=== PATIENT | female | born 1990 | race Two or more races ===

== ENCOUNTER 2021-03-03 07:52 | Observation (INO) | payer SELFPAY ==
[~2021-03-03] VITALS: Ht 160 cm; Wt 79.4 kg
[2021-03-03 08:55] VITALS: BP 109/67
[2021-03-03] MEDS ORDERED: PNV1TABL89 PO (09:42)
== END 2021-03-03 09:35 | disposition home or self-care (01) ==
LOC: INTOOBSV 07:53 → 4S 07:53
PROVIDERS: ADMIT Obstetrics & Gynecology; ATTEND Obstetrics & Gynecology
DX: O62.9 Abnormality of forces of labor, unspecified (principal); O26.892 Other specified pregnancy related conditions, second trimester; R10.2 Pelvic and perineal pain; Z79.899 Other long term (current) drug therapy; Z3A.20 20 weeks gestation of pregnancy
CPT/HCPCS: 59025; 76805; 81003; 99219

== ENCOUNTER 2022-06-03 06:25 | Emergency (ER) | payer MEDICAID ==
[~2022-06-03] VITALS: Ht 160 cm; Wt 72.7 kg
[~2022-06-03 06:25] MED LIST: PNV1TABL89 PO
[2022-06-03] MEDS ORDERED: CEPHALEXIN MONOHYDRATE 500 MG CAPSULE PO ONE (08:30)
[2022-06-03] MEDS ORDERED: SULFAMETHOX/TRIMETH DS 800-160 MG/TABLET PO ONE (08:30)
[2022-06-03] MEDS ORDERED: DiphenhydrAMINE HCL 25 MG CAPSULE PO ONE (08:30)
[2022-06-03] MEDS ORDERED: CEPH-558 PO (08:30)
[2022-06-03] MEDS ORDERED: SULF-261 PO (08:31)
[2022-06-03 08:40] VITALS: BP 112/68
[2022-06-04] MEDS ORDERED: IBUP-1554 PO (05:16)
[2022-06-04] MEDS ORDERED: HYDR-4723 PO (05:16)
== END 2022-06-03 08:48 | disposition home or self-care (01) ==
LOC: EMS 06:26
DX: L03.116 Cellulitis of left lower limb (principal); L03.032 Cellulitis of left toe
CPT/HCPCS: 99284; Z7502; Z7610

== ENCOUNTER 2022-06-04 03:19 | Emergency (ER) | payer MEDICAID ==
[~2022-06-04] VITALS: Ht 160 cm; Wt 72.7 kg
[~2022-06-04 03:19] MED LIST changes: +CEPH-558 PO; +SULF-261 PO
[2022-06-04] MEDS: CefTRIAXone 1 GM/DEXTROSE 50 ML IV ONE (04:46)
[2022-06-04] MEDS: HYDROmorphone 2 MG/ML VIAL IVP ONE (04:47)
[2022-06-04] MEDS: ONDANSETRON HCL 4 MG/2 ML VIAL IVP ONE (04:48)
[2022-06-04 04:49] LABS: BASOPHILS % (AUTO) 0.4 % (0.0-2.0); EOSINOPHILS % (AUTO) 1.8 % (1.0-6.0); HEMATOCRIT 38.4 % (36-46); HEMOGLOBIN 13.1 g/dL (12.0-16.0); LYMPHOCYTES # (AUTO) 2.3 K/uL (1.0-4.8); LYMPHOCYTES % (AUTO) 18.5 % (22.0-44.0); MEAN CORPUSCULAR HEMOGLOBIN 33.8 pg (26.0-34.0); MEAN CORPUSCULAR HGB CONC 34.2 G/dL (31.0-37.0); MEAN CORPUSCULAR VOLUME 99 fL (80-100); MONOCYTES # (AUTO) 0.8 K/uL (0.1-1.0); MONOCYTES % (AUTO) 6.2 % (2.0-9.0); NEUTROPHILS % (AUTO) 73.1 % (40.0-70.0); PLATELET COUNT (AUTO) 161 K/uL (150-450); RED BLOOD CELL COUNT(AUTO) 3.88 MIL/uL (4.00-5.20); RED CELL DISTRIBUTION WIDTH 11.8 % (11.5-14.5)
[2022-06-04] MEDS ORDERED: IBUP-1554 PO (05:16)
[2022-06-04] MEDS ORDERED: HYDR-4723 PO (05:16)
[2022-06-04] MEDS: LIDOCAINE 1% 10 ML VIAL SQ ONE (05:18)
[2022-06-04 05:30] VITALS: BP 119/74
== END 2022-06-04 05:39 | disposition home or self-care (01) ==
LOC: EMS 03:20
DX: L03.032 Cellulitis of left toe (principal); T78.49XA Other allergy, initial encounter; W57.XXXA Bitten or stung by nonvenomous insect and other nonvenomous arthropods, initial encounter
CPT/HCPCS: 99284; 10160; 96365; 96375; 84703; 85025; 36415; J0696; J1170; J2405; J3490

== ENCOUNTER 2022-06-06 12:57 | Emergency (ER) | payer MEDICAID ==
[~2022-06-06] VITALS: Ht 160 cm; Wt 61.4 kg
[~2022-06-06 12:57] MED LIST changes: +HYDR-4723 PO; +IBUP-1554 PO
[2022-06-06] MEDS ORDERED: CLINDAMYCIN 600 MG/D5% WATER 50 ML IV ONE (15:00)
[2022-06-06 15:10] LABS: BASOPHILS % (AUTO) 0.3 % (0.0-2.0); EOSINOPHILS % (AUTO) 2.2 % (1.0-6.0); HEMATOCRIT 38.8 % (36-46); HEMOGLOBIN 13.1 g/dL (12.0-16.0); LYMPHOCYTES # (AUTO) 1.8 K/uL (1.0-4.8); LYMPHOCYTES % (AUTO) 17.4 % (22.0-44.0); MEAN CORPUSCULAR HEMOGLOBIN 33.8 pg (26.0-34.0); MEAN CORPUSCULAR HGB CONC 33.8 G/dL (31.0-37.0); MEAN CORPUSCULAR VOLUME 100 fL (80-100); MONOCYTES # (AUTO) 0.5 K/uL (0.1-1.0); MONOCYTES % (AUTO) 4.7 % (2.0-9.0); NEUTROPHILS # (AUTO) 7.6 K/uL (1.8-7.7); NEUTROPHILS % (AUTO) 75.4 % (40.0-70.0); PLATELET COUNT (AUTO) 194 K/uL (150-450); RED BLOOD CELL COUNT(AUTO) 3.89 MIL/uL (4.00-5.20); RED CELL DISTRIBUTION WIDTH 12.2 % (11.5-14.5)
[2022-06-06 15:19] LABS: ANION GAP 4 mmol/L (8-16); CALCIUM, TOTAL 9.2 mg/dL (8.8-10.5); CARBON DIOXIDE 33 mmol/L (22-29); CHLORIDE 101 mmol/L (98-107); CREATININE 0.77 mg/dL (0.60-1.30); GLUCOSE,RANDOM 78 mg/dL (70-110); POTASSIUM 4.4 mmol/L (3.5-5.1); SODIUM SERUM 138 mmol/L (136-145); UREA NITROGEN, BLOOD 12 mg/dL (7-18)
[2022-06-06 15:23] LABS: GLOMERULAR FILTR. RATE CALC > 60 mL/min (>60)
[2022-06-06 15:25] LABS: ALANINE AMINOTRANSFERASE 22 U/L (12-78); ALBUMIN 3.5 g/dL (3.4-5.0); ALKALINE PHOSPHATASE 60 U/L (46-116); ASPARTATE AMINOTRANSFERASE 18 U/L (15-37); BILIRUBIN,TOTAL 0.5 mg/dL (0.1-1.0); TOTAL PROTEIN, SERUM 7.8 g/dL (6.4-8.2)
[2022-06-06] MEDS ORDERED: HYDROCODONE/ACETAMINOPHEN 5-325 MG TABLET PO ONE (16:15)
[2022-06-06 17:10] VITALS: BP 125/69
[2022-06-06] MEDS ORDERED: CLIN-142 PO (17:51)
== END 2022-06-06 18:03 | disposition home or self-care (01) ==
LOC: EMS 13:13
DX: L03.116 Cellulitis of left lower limb (principal)
CPT/HCPCS: 99285; 96365; 80053; 84703; 85025; 87040; 36415; J3490

== ENCOUNTER 2024-06-12 08:33 | Emergency (ER) | payer MEDICAID ==
[~2024-06-12] VITALS: Ht 160 cm; Wt 87.7 kg
[~2024-06-12 08:33] MED LIST changes: +CLIN-142 PO; +HYDR-4062 PO; -HYDR-4723 PO
[2024-06-12 08:56] VITALS: BP 108/67; PULSE 63; RESP 16; TEMP 98.5; O2SAT 98
[2024-06-12] MEDS ORDERED: NEOM10SO14 AS (09:33)
[2024-06-12] MEDS: NEOMYCIN/POLYMYXIN B/HYDROCORT 10 ML OTIC SOLUTION AS ONE (10:48)
== END 2024-06-12 10:49 | disposition home or self-care (01) ==
LOC: EMS 08:33
DX: H60.92 Unspecified otitis externa, left ear (principal)
CPT/HCPCS: 99283

== ENCOUNTER 2024-06-29 17:05 | Emergency (ER) | payer MEDICAID ==
[~2024-06-29] VITALS: Ht 160 cm; Wt 68.2 kg
[~2024-06-29 17:05] MED LIST changes: +NEOM10SO14 AS
[2024-06-29 17:45] VITALS: TEMP 99.2
[2024-06-29] MEDS: ONDANSETRON HCL 4 MG/2 ML VIAL IVP ONE (21:12)
[2024-06-29] MEDS: SODIUM CHLORIDE 0.9% 1,000 ML IV ONE (21:13)
[2024-06-29 21:14] LABS: BASOPHILS % (AUTO) 0.6 % (0.0-2.0); EOSINOPHILS % (AUTO) 3.3 % (1.0-6.0); HEMATOCRIT 41.1 % (36-46); HEMOGLOBIN 14.2 g/dL (12.0-16.0); LYMPHOCYTES # (AUTO) 1.7 K/uL (1.0-4.8); LYMPHOCYTES % (AUTO) 26.2 % (22.0-44.0); MEAN CORPUSCULAR HEMOGLOBIN 34.3 pg (26.0-34.0); MEAN CORPUSCULAR HGB CONC 34.5 G/dL (31.0-37.0); MEAN CORPUSCULAR VOLUME 99 fL (80-100); MONOCYTES # (AUTO) 0.5 K/uL (0.1-1.0); MONOCYTES % (AUTO) 7.5 % (2.0-9.0); NEUTROPHILS % (AUTO) 62.4 % (40.0-70.0); PLATELET COUNT (AUTO) 166 K/uL (150-450); RED BLOOD CELL COUNT(AUTO) 4.14 MIL/uL (4.00-5.20); RED CELL DISTRIBUTION WIDTH 12.1 % (11.5-14.5); WHITE BLOOD COUNT (AUTO) 6.5 K/uL (4.5-11.0)
[2024-06-29 21:16] VITALS: BP 108/59; PULSE 74; RESP 18; O2SAT 99
[2024-06-29 21:20] LABS: APPEARANCE,URINE CLEAR (CLEAR); BILIRUBIN,URINE NEGATIVE (NEGATIVE); COLOR,URINE LIGHT YELLOW (YELLOW); GLUCOSE, URINE (UA) NEGATIVE (NEGATIVE); KETONES,URINE NEGATIVE (NEGATIVE); LEUKOCYTE ESTERASE ,URINE MODERATE (NEGATIVE); NITRATE,URINE NEGATIVE (NEGATIVE); OCCULT BLOOD,URINE SMALL (NEGATIVE); PH,URINE 6.5 (5.0-8.0); PROTEIN,URINE TRACE mg/dL (NEGATIVE); UROBILINOGEN,URINE <=1.0 mg/dL (<=1.0)
[2024-06-29 21:41] LABS: BACTERIA,URINE Moderate /HPF (None Seen); SQUAMOUS EPITHELIAL CELL,UR Few /LPF (None Seen)
[2024-06-29 21:42] LABS: MUCUS,URINE Moderate LPF (None Seen)
[2024-06-29] MEDS ORDERED: ONDA-104 PO (21:56)
[2024-06-29 22:41] LABS: HCG,QUAL URINE NEGATIVE (NEGATIVE)
[2024-06-29 22:58] LABS: ANION GAP 9 mmol/L (8-16); CALCIUM, TOTAL 8.8 mg/dL (8.8-10.5); CARBON DIOXIDE 27 mmol/L (22-29); CHLORIDE 103 mmol/L (98-107); CREATININE 0.69 mg/dL (0.60-1.30); GLOMERULAR FILTR. RATE CALC > 60 mL/min (>60); GLUCOSE,RANDOM 89 mg/dL (70-110); POTASSIUM 3.7 mmol/L (3.5-5.1); SODIUM SERUM 139 mmol/L (136-145); UREA NITROGEN, BLOOD 16 mg/dL (7-18)
[2024-06-29 23:05] LABS: ALANINE AMINOTRANSFERASE 26 U/L (12-78); ALBUMIN 3.5 g/dL (3.4-5.0); ALKALINE PHOSPHATASE 66 U/L (46-116); ASPARTATE AMINOTRANSFERASE 27 U/L (15-37); BILIRUBIN,TOTAL 0.9 mg/dL (0.1-1.0); TOTAL PROTEIN, SERUM 7.2 g/dL (6.4-8.2)
== END 2024-06-29 23:34 | disposition home or self-care (01) ==
LOC: EMS 17:05
DX: A08.4 Viral intestinal infection, unspecified (principal); R11.2 Nausea with vomiting, unspecified; R10.84 Generalized abdominal pain
CPT/HCPCS: 99283; 96374; 96361; 80053; 81001; 84703; 85025; 87086; 36415; J2405; J7030

== ENCOUNTER → 2024-07-14 | Emergency (ER) | payer MEDICAID ==
[~2024-07-14] VITALS: Ht 160 cm; Wt 81.8 kg
[~2024-07-14] MED LIST changes: +IOHEXOL 350 MG/ML 100 ML VIAL ONE; -NEOM10SO14 AS; +NEOM10SO24 AS; +ONDA-104 PO; +SODIUM CHLORIDE 0.9% 100 ML ONE
[2024-07-14 14:13] VITALS: BP 108/50; PULSE 67; RESP 14; TEMP 98.2; O2SAT 100
[2024-07-14] MEDS: SODIUM CHLORIDE 0.9% 1,000 ML IV ONE (14:52)
[2024-07-14] MEDS: FAMOTIDINE 20 MG/2 ML VIAL IVP ONE (14:52)
[2024-07-14] MEDS: ONDANSETRON HCL 4 MG/2 ML VIAL IVP ONE (14:52)
[2024-07-14] MEDS: MAG HYDROX/ALUMINUM HYD/SIMETH 30 ML SUSPENSION UDCUP PO ONE (14:52)
[2024-07-14] MEDS: KETOROLAC TROMETHAMINE 30 MG/ML VIAL IVP ONE (14:52)
[2024-07-14 15:10] LABS: BASOPHILS % (AUTO) 0.4 % (0.0-2.0); EOSINOPHILS % (AUTO) 2.5 % (1.0-6.0); HEMATOCRIT 37.8 % (36-46); HEMOGLOBIN 13.1 g/dL (12.0-16.0); LYMPHOCYTES # (AUTO) 1.8 K/uL (1.0-4.8); LYMPHOCYTES % (AUTO) 17.8 % (22.0-44.0); MEAN CORPUSCULAR HEMOGLOBIN 34.3 pg (26.0-34.0); MEAN CORPUSCULAR HGB CONC 34.7 G/dL (31.0-37.0); MEAN CORPUSCULAR VOLUME 99 fL (80-100); MONOCYTES # (AUTO) 0.5 K/uL (0.1-1.0); MONOCYTES % (AUTO) 5.2 % (2.0-9.0); NEUTROPHILS # (AUTO) 7.5 K/uL (1.8-7.7); NEUTROPHILS % (AUTO) 74.1 % (40.0-70.0); PLATELET COUNT (AUTO) 158 K/uL (150-450); RED BLOOD CELL COUNT(AUTO) 3.82 MIL/uL (4.00-5.20); RED CELL DISTRIBUTION WIDTH 12.2 % (11.5-14.5); WHITE BLOOD COUNT (AUTO) 10.1 K/uL (4.5-11.0)
[2024-07-14 15:18] LABS: ANION GAP 5 mmol/L (8-16); CALCIUM, TOTAL 8.7 mg/dL (8.8-10.5); CARBON DIOXIDE 29 mmol/L (22-29); CHLORIDE 104 mmol/L (98-107); CREATININE 0.75 mg/dL (0.60-1.30); GLOMERULAR FILTR. RATE CALC > 60 mL/min (>60); GLUCOSE,RANDOM 88 mg/dL (70-110); POTASSIUM 3.9 mmol/L (3.5-5.1); SODIUM SERUM 138 mmol/L (136-145); UREA NITROGEN, BLOOD 17 mg/dL (7-18)
[2024-07-14 15:24] LABS: ALANINE AMINOTRANSFERASE 28 U/L (12-78); ALBUMIN 3.1 g/dL (3.4-5.0); ALKALINE PHOSPHATASE 53 U/L (46-116); ASPARTATE AMINOTRANSFERASE 40 U/L (15-37); BILIRUBIN,TOTAL 1.3 mg/dL (0.1-1.0); LIPASE 31 U/L (16-77); TOTAL PROTEIN, SERUM 6.5 g/dL (6.4-8.2)
[2024-07-14 15:35] LABS: APPEARANCE,URINE CLEAR (CLEAR); BILIRUBIN,URINE NEGATIVE (NEGATIVE); COLOR,URINE YELLOW (YELLOW); GLUCOSE, URINE (UA) NEGATIVE (NEGATIVE); KETONES,URINE NEGATIVE (NEGATIVE); LEUKOCYTE ESTERASE ,URINE NEGATIVE (NEGATIVE); NITRATE,URINE NEGATIVE (NEGATIVE); OCCULT BLOOD,URINE SMALL (NEGATIVE); PH,URINE 6.5 (5.0-8.0); PROTEIN,URINE NEGATIVE (NEGATIVE); SPECIFIC GRAVITIY, URINE 1.025 (1.003-1.030); UROBILINOGEN,URINE <=1.0 mg/dL (<=1.0)
[2024-07-14 15:39] LABS: HCG,QUAL URINE NEGATIVE (NEGATIVE)
[2024-07-14 16:01] LABS: BACTERIA,URINE None Seen /HPF (None Seen); RBC,URINE 0-2 /HPF (0-2); WBC,URINE None Seen /HPF (0-5)
== END | disposition still patient (30) ==
LOC: EMS 13:53
DX: K52.9 Noninfective gastroenteritis and colitis, unspecified (principal)
CPT/HCPCS: 99285; 74177; 96374; 96375; 96361; 80048; 80076; 81001; 83690; 85025; 36415; 84703; Q9967; J3490; J1885; J2405; J7030; J7050

== ENCOUNTER 2025-05-07 04:48 | Emergency (ER) | payer MEDICAID, OTHER ==
[~2025-05-07] VITALS: Ht 160 cm; Wt 85.9 kg
[~2025-05-07 04:48] MED LIST changes: -CEPH-558 PO; -CLIN-142 PO; -HYDR-4062 PO; -IBUP-1554 PO; -IOHEXOL 350 MG/ML 100 ML VIAL ONE; -NEOM10SO24 AS; -PNV1TABL89 PO; -SODIUM CHLORIDE 0.9% 100 ML ONE; -SULF-261 PO
[2025-05-07 04:53] VITALS: BP 99/75; PULSE 92; RESP 18; TEMP 97.5; O2SAT 98
[2025-05-07] MEDS: LIDOCAINE 2% 6 ML JELLY TP ONE (06:31)
[2025-05-07] MEDS: OFLOXACIN 0.3% 5 ML OTIC SOLUTION AS ONE (07:07)
== END 2025-05-07 07:18 | disposition home or self-care (01) ==
LOC: EMS 04:50
DX: S00.452A Superficial foreign body of left ear, initial encounter (principal); Z79.899 Other long term (current) drug therapy; W44.F4XA Insect entering into or through a natural orifice, initial encounter; Y93.89 Activity, other specified; Y92.89 Other specified places as the place of occurrence of the external cause; Y99.9 Unspecified external cause status
CPT/HCPCS: 99284; Z7502; Z7610